=== PATIENT | male | born 1975 | race Caucasian/White ===

== ENCOUNTER 2019-07-14 12:45 | Emergency (ER) | payer SELFPAY ==
[2019-07-14 13:12] VITALS: BP 137/84; PULSE 88; RESP 16; TEMP 36.6; O2SAT 100
--- NOTE | 2019-07-14 13:24 | PC.NURSE ---
1309, eye exam set up done.
--- NOTE | 2019-07-14 13:27 | ED.EYEPROB ---
HPI - Eye Problem General Chief complaint: Eye Problems Stated complaint: eye injury Time Seen by Provider: 07/14/19 13:20 Source: patient and RN notes reviewed Mode of arrival: ambulatory Limitations: no limitations History of Present Illness HPI Narrative: 43 male presents with concern for right eye pain. Reports yesterday he scratched his eye with a branch. Reports slightly blurred vision. Denies drainage from the eye. chief complaint: eye pain Related Data Home Medications Medication Instructions [facility]ed [facility] Allergies Allergy/AdvReac Type Severity Reaction Status Date / Time No Known Allergies Allergy Verified 07/14/19 13:03 Review of Systems Review of Systems: Narrative: CONSTITUTIONAL: Denies malaise, chills, sweats, or fever. EYES: Reports blurred vision in the right eye, right eye pain and redness. Denies discharge. ENT: Denies rhinorrhea, congestion, sinus pain, otalgia or sore throat. NEUROLOGIC: Denies headache. All systems reviewed & are unremarkable except as noted in HPI and below PMFSH Comments At time of signature, agree with nursing past medical, surgical, social and family history. There is no relevant family history pertinent to the presenting complaint Exam Narrative: Exam Narrative: GENERAL: Well-appearing, well-nourished, and in no acute distress. HEAD: Normocephalic, atraumatic. EYES: Left PERRLA, conjunctivae clear, and EOMI. right eye sclera and conjunctival injected, corneal abrasion noted upon Hernandez lamp exam, see note, watery drainage noted ENT: Nares clear. Mucous membranes moist. NECK: Supple. CHEST: No respiratory distress. Speaks in full sentences. HEART: Regular rate and rhythm. SKIN: Warm, dry, no rash. NEURO: Alert and oriented x3. PSYCH: Normal mood and affect Course Course Emergency Course: Patient is aware of diagnosis, understands and agrees to treatment plan. Anticipatory guidance given. Patient agrees to follow-up as directed and is aware of reasons to seek care at the emergency department. Portions of this record may have been created with voice recognition software Vital Signs Vital signs: Vital Signs Temperature 97.9 F 07/14/19 13:12 Pulse Rate 88 07/14/19 13:12 Respiratory Rate 16 07/14/19 13:12 Blood Pressure 137/84 07/14/19 13:12 Pulse Oximetry 100 07/14/19 13:12 Temperature 97.9 F 07/14/19 13:12 Pulse Rate 88 07/14/19 13:12 Respiratory Rate 16 07/14/19 13:12 Blood Pressure 137/84 07/14/19 13:12 Pulse Oximetry 100 07/14/19 13:12 Reviewed. Pt has been instructed to follow up with his primary care provider within the next week regarding his elevated blood pressure today. Procedures Other Procedure Procedure 1: Other Procedure: Tetracaine 1 gtt instilled in right eye, fluorescein stain applied. Corneal abrasion noted upon hernandez lamp exam at approximately 12 o'clock in relation to the pupil. Eye washed with NS 100 ml. No foreign bodies or Maite sign noted. MDM - Eye Problem MDM Narrative Medical decision making narrative: Consideration of the following conditions may be warranted for the presenting problem, they are not final diagnoses: Bacterial conjunctivitis, allergic conjunctivitis, viral conjunctivitis, foreign body, blepharitis, chalazion, hordeolum, corneal abrasion. Exam findings show no acute concerns or changes; patient is non-toxic appearing and is in no distress. Patient is appropriate for outpatient treatment and follow-up. Critical Care Time Critical Care Time Critical Care Time: No Discharge Plan Discharge Clinical Impression: Corneal abrasion Qualifiers: Encounter type: initial encounter Laterality: right Qualified Code(s): S05.01XA - Injury of conjunctiva and corneal abrasion without foreign body, right eye, initial encounter Patient Disposition: Home, Self-Care Condition: Stable Instructions: Corneal Abrasion (ED) Additional Instructions:
== END 2019-07-14 13:41 | disposition home or self-care (01) ==
PROVIDERS: Emergency Provider Nurse Practitioner
DX: S05.01XA Injury of conjunctiva and corneal abrasion without foreign body, right eye, initial encounter (principal); R03.0 Elevated blood-pressure reading, without diagnosis of hypertension; W22.8XXA Striking against or struck by other objects, initial encounter
CPT/HCPCS: 99213; A9270; G0463

== ENCOUNTER 2024-11-24 00:33 | Day surgery (SDC) | payer OTHER, SELFPAY ==
[2024-11-10 16:01] VITALS: BMI 27.8
[2024-11-24 08:40] VITALS: BP 116/91; PULSE 80; RESP 18; TEMP 36.6; O2SAT 100; BMI 28.0
--- NOTE | 2024-11-24 08:53 | WPDANESEPPF ---
Anes - Initial Pre Proc Eval Procedure: Operation Date: 11/24/24 10:00 Proposed Procedures p EGD & Screening Colonoscopy - Magdiel Bassett MD Date/Time: 11/24/24 08:53 Surgeon: Magdiel Bassett MD Pre Op Diagnosis: Encounter for screening for malignant neoplasm of Patient Data Age: 49 Gender: M Height: 1.83 m Weight: 93.9 kg Last Vital Signs Temp 36.6 C 11/24/24 08:40 Pulse 80 11/24/24 08:40 Resp 18 11/24/24 08:40 BP 116/91 H 11/24/24 08:40 Pulse Ox 100 11/24/24 08:40 Allergies Allergy/AdvReac Type Severity Reaction Status Date / Time No Known Allergies Allergy Verified 11/24/24 08:45 Home Medications ?Medication ?Instructions ?Recorded ?Confirmed ?Type cetirizine 10 mg tablet (Zyrtec) 10 mg PO DAILY 03/26/23 11/24/24 History fluticasone propionate 50 1 spray intranasal DAILY 03/26/23 11/24/24 History mcg/actuation nasal spray,suspension (Flonase Allergy Relief) rosuvastatin 20 mg tablet 20 mg PO DAILY #90 tabs 03/28/23 11/24/24 Rx triamcinolone acetonide 0.1 % 1 applic topical BID PRN Rash 03/28/23 11/10/24 History topical cream pantoprazole 40 mg tablet,delayed 40 mg PO DAILY 11/10/24 11/24/24 History release Patient hx anesthesia problems: none Family hx anesthesia problems: none Results Review: All pre-operative results and documents have been reviewed as part of the pre-operative evaluation. [facility] Past Medical History Medical History Colon cancer screening Dysphagia Allergic rhinitis Surgical History Surgical History Hx of right inguinal hernia repair about 2013 Family History Family History Father Diabetes mellitus neuropathy in his feet Mother Depression Sibling No problems noted. Grandparent Heart failure Grandparent Heart disease, Onset Age: 55 age 55 of a massive heart attack Social History Social History Smoking status: Former smoker Tobacco type: cigarettes Alcohol intake: current Drinks per week: 12 Alcohol use details: MIXED DRINK/WINE Substance use: never Substance use type: does not use Do You Feel Safe in your Home?: Yes Lack of Transportation: No Lack of Food: Never True Current Housing: I Have Housing Concerned About Future Housing: No Difficulty Paying Gas/Electric Bills: No Difficulty Paying for Meds: No Currently Unemployed: No Education: Trade/Vocational Certificate Difficulty w/ Childcare or Family Care: No Living arrangements: with family Occupation/Education: occupation 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 Gender identity (if verbalized by the patient): Male Sexual Orientation (if Verbalized by the Patient): Straight or Heterosexual Spiritual care concerns: No Anes - Eval Final PreProcedure Day of Procedure 11/24/24 08:53 Patient weight: overweight Heart: regular rate and rhythm Lungs: clear to auscultation Airway: Mallampati scale class II Neurological: alert and oriented Last oral intake: >/= 8 hours ASA classification: II Emergent: no Anesthetic plan: proceed Anesthesia type and monitoring: general GIVS and standard monitoring Results Review: All pre-operative results and documents have been reviewed as part of the pre-operative evaluation. Informed Consent: The patient's anesthetic plan and its attendant risks and benefits were discussed with the patient/family/POA. Questions were solicited and answers provided to the satisfaction of the patient/family/POA.
--- NOTE | 2024-11-24 08:53 | PM.HPGS ---
History of Present Illness History of Present Illness Consent: Risks, benefits, and alternatives have been discussed and questions answered. Patient agrees to proceed with procedure. Chief complaint: Encounter for screening for malignant neoplasm of Narrative: Yusef Mak is a 49 year old male here for first egd and screening colonoscopy, h/o dysphagia Review of Systems Review of Systems: All systems reviewed & are unremarkable except as noted in HPI and below PMFSH Past Medical History Medical History (Updated 11/24/24 @ 08:54 by Magdiel Bassett MD) Colon cancer screening Dysphagia Allergic rhinitis Surgical History Surgical History (Updated 03/26/23 @ 14:59 by Blayne Merino MD) Hx of right inguinal hernia repair about 2013 Family History Family History (Updated 03/26/23 @ 15:03 by Blayne Merino MD) Father Diabetes mellitus neuropathy in his feet Mother Depression Sibling No problems noted. Grandparent Heart failure Grandparent Heart disease, Onset Age: 55 age 55 of a massive heart attack Social History Social History (Updated 03/26/23 @ 15:04 by Blayne Merino MD) Smoking status: Former smoker Tobacco type: cigarettes Alcohol intake: current Drinks per week: 12 Alcohol use details: MIXED DRINK/WINE Substance use: never Substance use type: does not use Do You Feel Safe in your Home?: Yes Lack of Transportation: No Lack of Food: Never True Current Housing: I Have Housing Concerned About Future Housing: No Difficulty Paying Gas/Electric Bills: No Difficulty Paying for Meds: No Currently Unemployed: No Education: Trade/Vocational Certificate Difficulty w/ Childcare or Family Care: No Living arrangements: with family Occupation/Education: occupation 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 Gender identity (if verbalized by the patient): Male Sexual Orientation (if Verbalized by the Patient): Straight or Heterosexual Spiritual care concerns: No Meds Home Medications and Allergies Home Medications ?Medication ?Instructions ?Recorded ?Confirmed ?Type cetirizine 10 mg tablet (Zyrtec) 10 mg PO DAILY 03/26/23 11/24/24 History fluticasone propionate 50 1 spray intranasal DAILY 03/26/23 11/24/24 History mcg/actuation nasal spray,suspension (Flonase Allergy Relief) rosuvastatin 20 mg tablet 20 mg PO DAILY #90 tabs 03/28/23 11/24/24 Rx triamcinolone acetonide 0.1 % 1 applic topical BID PRN Rash 03/28/23 11/10/24 History topical cream pantoprazole 40 mg tablet,delayed 40 mg PO DAILY 11/10/24 11/24/24 History release Allergies Allergy/AdvReac Type Severity Reaction Status Date / Time No Known Allergies Allergy Verified 11/24/24 08:45 Vital Signs Vital Signs - 24 hr 11/24/24 08:40 Temperature 97.8 F Pulse Rate 80 Respiratory Rate 18 Blood Pressure 116/91 H Pulse Oximetry 100 Exam Const: General: comfortable and no acute distress HENMT: Face/Nose/Sinus: Normal nares present Eyes: General: appearance normal, both eyes and all related structures Neck: Neck: no JVD Resp: Auscultation: clear to auscultation bilaterally Cardio: Rate: regular rate Rhythm: regular rhythm GI: Inspection: non-distended GI Palp: Yes Soft to palpation Skin: General skin exam: normal color Neuro: Speech: normal speech Extrem: General: normal to inspection Psych: Mental Status: mental status grossly normal Assessment and Plan Assessment and plan (1) Dysphagia: Code(s): R13.10 - Dysphagia, unspecified Status: Acute Assessment and Plan: egd (2) Colon cancer screening: Code(s): Z12.11 - Encounter for screening for malignant neoplasm of colon Status: Acute Assessment and Plan: colonoscopy
[2024-11-24] MEDS: LACTATED RINGERS 1,000 ML 150 ML IV CONT (08:57)
[2024-11-24] MEDS: BENZOCAINE (*SP) 60 ML SPRAY CAN (HURRICAINE) 1 SPRAY MUCOUS MEM (09:00)
--- NOTE | 2024-11-24 09:12 | SUR.OPER ---
EGD [id number]. Colonoscopy start time 910.
--- NOTE | 2024-11-24 09:19 | S_PTH ---
PATIENT: Yusef Mak LOC: [facility]#:[id number] AGE/SX: 49/M ROOM: RE11/24/[address]: Magdiel Bassett MD : 1975 BED: DIS: 11/24/2024 SPEC #: [id number] RECD: 11/24/24 10:05 STATUS: MEAGHAN REClint #: [id number] OLIVIA: 11/24/24 09:[address]: Magdiel Bassett DEPT: [facility] [place] Surgical RECD BY: Rashi Chavarria Tissues: A - Gastric Biopsy B - Colon Polypectomy Procedures: Hematoxylin and Eosin Stain Gross and Microscopic Level 4
[2024-11-24 09:22] VITALS: BP 107/73; PULSE 70; RESP 13; O2SAT 97
[2024-11-24 09:32] VITALS: BP 124/80; PULSE 81; RESP 18; O2SAT 100
[2024-11-24 09:42] VITALS: BP 120/86; PULSE 72; RESP 19; O2SAT 100
== END 2024-11-24 09:57 | disposition home or self-care (01) ==
PROVIDERS: Referring Provider Emergency Medicine; Visit Provider Internal Medicine Gastroenterology
PROC: 0DJ08ZZ Inspection of Upper Intestinal Tract, Via Natural or Artificial Opening Endoscopic (ICD-10-PCS; CPT 45378; principal; 2024-11-24 10:00)
DX: Z12.11 Encounter for screening for malignant neoplasm of colon (principal); D12.3 Benign neoplasm of transverse colon; K57.30 Diverticulosis of large intestine without perforation or abscess without bleeding; K22.2 Esophageal obstruction; K44.9 Diaphragmatic hernia without obstruction or gangrene; K21.9 Gastro-esophageal reflux disease without esophagitis; Z98.890 Other specified postprocedural states; Z87.891 Personal history of nicotine dependence; Z82.49 Family history of ischemic heart disease and other diseases of the circulatory system
CPT/HCPCS: 43249; 43239; 45385; 88305; C1726; J2003; J2704; J7120